=== PATIENT | female | born 1960 | race Hispanic/Latino ===

== ENCOUNTER 2018-12-20 09:55 | Emergency (ER) | payer SELFPAY ==
[2018-12-20] MEDS ORDERED: ONDANSETRON HCL 4 MG/2 ML VIAL ONE (10:28)
[2018-12-20] MEDS ORDERED: MORPHINE SULFATE 2 MG/ML 1ML SYG ONE (10:28)
[2018-12-20 10:34] LABS: BASOPHILS % (AUTO) 0.9 % (0.0-5.0); EOSINOPHILS % (AUTO) 3.1 % (0.0-8.0); HEMATOCRIT 40.1 % (36-48); MEAN CORPUSCULAR HEMOGLOBIN 32.2 pg (27.0-33.0); MEAN CORPUSCULAR HGB CONC 35.2 g/dL (32.0-36.0); MEAN CORPUSCULAR VOLUME 91.6 fL (79-99); MONOCYTES % (AUTO) 5.2 % (3.0-13.0); NEUTROPHILS % (AUTO) 61.8 % (40.0-77.0); NUCLEATED RED BLOOD CELLS 0.1 % (0.0-0.19); PLATELET COUNT (AUTO) 154 K/uL (130-400); RED BLOOD CELL COUNT(AUTO) 4.38 MIL/uL (4.00-5.50); WHITE BLOOD COUNT (AUTO) 8.9 K/uL (4.8-10.8)
[2018-12-20] MEDS ORDERED: LIDOCAINE HCL 1% 20 ML VIAL ONE (10:38)
[2018-12-20 10:40] LABS: CREATININE 0.8 mg/dL (0.5-1.5)
[2018-12-20 10:45] LABS: ALBUMIN 2.9 g/dL (3.5-5.0); BILIRUBIN,TOTAL 0.3 mg/dL (0.2-1.0); TOTAL PROTEIN, SERUM 6.9 g/dL (6.0-8.3)
== END 2018-12-20 12:08 | disposition home or self-care (01) ==
LOC: EDH 09:55
DX: L02.415 Cutaneous abscess of right lower limb (principal); E11.65 Type 2 diabetes mellitus with hyperglycemia; R03.0 Elevated blood-pressure reading, without diagnosis of hypertension; Z88.0 Allergy status to penicillin
CPT/HCPCS: 10061; 36415; 80053; 85025; 96374; 96375; 99284; J2405

== ENCOUNTER 2020-10-14 18:03 | Emergency (ER) | payer OTHER, MEDICAID ==
[~2020-10-14] VITALS: Ht 152.4 cm; Wt 78.9 kg
[2020-10-14 18:04] VITALS: BP 96/59
== END 2020-10-14 22:58 | disposition left against medical advice (07) ==
LOC: EDH 18:03
DX: M54.9 Dorsalgia, unspecified (principal); Z53.21 Procedure and treatment not carried out due to patient leaving prior to being seen by health care provider